=== PATIENT | male | born 1965 | race Caucasian/White ===

== ENCOUNTER 2018-03-18 22:12 | Inpatient (IN) ==
[2018-03-18] MEDS ORDERED: SODIUM CHLORIDE 0.9% 1,000 ML IV STA (22:22)
[2018-03-18] MEDS ORDERED: OCTREOTIDE 100 MCG/ML SYRINGE IV STA (22:22)
[2018-03-18] MEDS ORDERED: SODIUM CHLORIDE 0.9% 1,000 ML IV PRN (22:23)
[2018-03-18 22:31] LABS: Basophils # 0.1 10*3/uL (0.0-0.2); Basophils % 0.7 % (0.0-0.8); Eosinophils % 0.2 % (0.00-10.9); Hematocrit 21.8 VOL% (42.0-52.0); Hemoglobin 7.1 GM/DL (14.0-18.0); Immature Granulocytes % 0.8 %; Immature Granulocytes Absolute 0.11 #; Lymphocytes # 2.3 10*3/uL (1.4-4.0); Lymphocytes % 16.6 % (21.2-54.2); Mean Corpuscular HGB Conc 32.6 GM/DL (32-36); Mean Corpuscular Hemoglobin 28 PG (27-34); Mean Corpuscular Volume 85.5 FL (87-102); Mean Platelet Volume 10.1 FL (9.6-12.0); Monocytes # 1.4 10*3/uL (0.11-0.8); Monocytes % 9.9 % (1.7-12.7); Neutrophils # 9.8 10*3/uL (1.4-7.4); Neutrophils % 71.8 % (38.7-73.9); Platelet Count 230 T/CUMM (130-400); Red Blood Count 2.55 MC/CUMM (3.8-5.5); Red Cell Distribution Width 17.2 % (9.3-17.3); White Blood Count 13.7 T/CUMM (4-12)
[2018-03-18] MEDS: OCTREOTIDE 500 MCG in SODIUM CHLORIDE 0.9% 100 ML IV SCH (22:51)
[2018-03-18 22:57] LABS: INR 1.4; PT Patient Result 14.1 SECS; Partial Thromboplastin Time 28.8 SECS (0-40)
[2018-03-18 22:59] LABS: Albumin 2.6 G/DL (3.4-5.0); Bilirubin,Total 0.8 MG/DL (0.2-1.0); Calcium 8.2 MG/DL (8.5-10.1); Osmolality,Calculated 264.8 MOS/KG (273-304); Potassium 4.5 MMOL/L (3.5-5.1); Total Protein 7.1 G/DL (6.4-8.3)
[2018-03-19] MEDS ORDERED: ALBUTEROL 2.5 MG/3 ML NEB RESP TX PRN (01:21)
[2018-03-19] MEDS ORDERED: ONDANSETRON 4 MG/2 ML VIAL IV PRN (01:21)
[2018-03-19] MEDS: LORazepam 2 MG/1 ML VIAL IV PRN ×2 (02:20→07:44)
[2018-03-19] MEDS: PANTOPRAZOLE INJ 200 MG in SODIUM CHLORIDE 0.9% 250 ML IV SCH (02:55)
[2018-03-19 05:54] LABS: Hematocrit 23.6 VOL% (42.0-52.0); Hemoglobin 8.2 GM/DL (14.0-18.0)
[2018-03-19 05:56] LABS: Basophils # 0.1 10*3/uL (0.0-0.2); Basophils % 0.7 % (0.0-0.8); Eosinophils % 0.2 % (0.00-10.9); Hematocrit 23.8 VOL% (42.0-52.0); Hemoglobin 8.1 GM/DL (14.0-18.0); Immature Granulocytes % 1.3 %; Immature Granulocytes Absolute 0.14 #; Lymphocytes # 1.5 10*3/uL (1.4-4.0); Lymphocytes % 13.6 % (21.2-54.2); Mean Corpuscular Hemoglobin 28 PG (27-34); Mean Corpuscular Volume 81.8 FL (87-102); Mean Platelet Volume 10.1 FL (9.6-12.0); Monocytes # 1.2 10*3/uL (0.11-0.8); Monocytes % 11.5 % (1.7-12.7); Neutrophils # 7.8 10*3/uL (1.4-7.4); Neutrophils % 72.7 % (38.7-73.9); Platelet Count 158 T/CUMM (130-400); Red Blood Count 2.91 MC/CUMM (3.8-5.5); Red Cell Distribution Width 15.5 % (9.3-17.3); White Blood Count 10.7 T/CUMM (4-12)
[2018-03-19 06:06] LABS: INR 1.3; PT Patient Result 13.7 SECS
[2018-03-19 06:43] LABS: Albumin 2.7 G/DL (3.4-5.0); Calcium 7.8 MG/DL (8.5-10.1); Osmolality,Calculated 267.5 MOS/KG (273-304); Potassium 4.4 MMOL/L (3.5-5.1); Total Protein 6.7 G/DL (6.4-8.3)
[2018-03-19 07:47] LABS: Hematocrit 23.7 VOL% (42.0-52.0); Hemoglobin 8.2 GM/DL (14.0-18.0)
[2018-03-19] MEDS: OCTREOTIDE 500 MCG in SODIUM CHLORIDE 0.9% 100 ML IV SCH ×2 (09:27→18:12)
[2018-03-19 14:00] LABS: Hematocrit 23.3 VOL% (42.0-52.0); Hemoglobin 8.1 GM/DL (14.0-18.0)
[2018-03-19 16:33] LABS: % Iron Saturation 20.7 % (18-50)
[2018-03-19 18:06] LABS: Hepatitis A Ab IgM Quant 0.43 Index; Hepatitis A Ab IgM Result Negative (Negative); Hepatitis B Core IgM Quant 0.15 Index; Hepatitis B Core IgM Result Negative (Negative); Hepatitis B Surface Ag Quant 0.61 Index; Hepatitis B Surface Ag Result Negative (Negative); Hepatitis C Virus Ab Quant 0.13 Index; Hepatitis C Virus Ab Result Negative (Negative)
[2018-03-19 18:25] LABS: Hemoglobin 6.1 GM/DL (14.0-18.0)
[2018-03-19] MEDS ORDERED: SODIUM CHLORIDE 0.9% 250 ML IV ONE (18:45)
[2018-03-19] MEDS ORDERED: SODIUM CHLORIDE 0.9% 1,000 ML IV PRN ×2 (18:49→19:06)
[2018-03-19] MEDS ORDERED: PROPOFOL 200 MG/20 ML VIAL IV ONE (20:18)
[2018-03-19] MEDS ORDERED: ONDANSETRON 4 MG/2 ML VIAL ONE (20:19)
[2018-03-19] MEDS ORDERED: PHENYLEPHRINE 1 MG/10 ML SYRINGE IV ONE (20:19)
[2018-03-19] MEDS ORDERED: ePHEDrine 50 MG/ML AMP ONE (20:19)
[2018-03-19] MEDS ORDERED: ETOMIDATE 40 MG/20 ML VIAL IV ONE (20:19)
[2018-03-20] MEDS: METOCLOPRAMIDE 10 MG/2 ML VIAL IV SCH ×4 (00:03→18:53)
[2018-03-20 00:57] LABS: Hematocrit 22.4 VOL% (42.0-52.0); Hemoglobin 7.8 GM/DL (14.0-18.0)
[2018-03-20] MEDS: PANTOPRAZOLE INJ 200 MG in SODIUM CHLORIDE 0.9% 250 ML IV SCH (01:35)
[2018-03-20] MEDS: LORazepam 2 MG/1 ML VIAL IV PRN ×5 (02:15→21:33)
[2018-03-20] MEDS: OCTREOTIDE 500 MCG in SODIUM CHLORIDE 0.9% 100 ML IV SCH ×2 (05:54→16:24)
[2018-03-20 06:12] LABS: Basophils # 0.1 10*3/uL (0.0-0.2); Eosinophils # 0.2 10*3/uL (0.0-0.87); Eosinophils % 2.1 % (0.00-10.9); Hematocrit 25.3 VOL% (42.0-52.0); Hemoglobin 8.5 GM/DL (14.0-18.0); Immature Granulocytes % 0.2 %; Immature Granulocytes Absolute 0.02 #; Lymphocytes # 1.6 10*3/uL (1.4-4.0); Lymphocytes % 19.1 % (21.2-54.2); Mean Corpuscular HGB Conc 33.6 GM/DL (32-36); Mean Corpuscular Hemoglobin 28 PG (27-34); Mean Corpuscular Volume 84.1 FL (87-102); Mean Platelet Volume 10.8 FL (9.6-12.0); Monocytes % 11.8 % (1.7-12.7); Neutrophils # 5.5 10*3/uL (1.4-7.4); Neutrophils % 65.8 % (38.7-73.9); Platelet Count 135 T/CUMM (130-400); Red Blood Count 3.01 MC/CUMM (3.8-5.5); Red Cell Distribution Width 14.7 % (9.3-17.3); White Blood Count 8.4 T/CUMM (4-12)
[2018-03-20 06:21] LABS: INR 1.3; PT Patient Result 13.7 SECS
[2018-03-20 06:23] LABS: INR 1.3; PT Patient Result 13.7 SECS
[2018-03-20 06:42] LABS: Albumin 2.4 G/DL (3.4-5.0); Bilirubin,Total 1.5 MG/DL (0.2-1.0); Calcium 7.7 MG/DL (8.5-10.1); Osmolality,Calculated 277.5 MOS/KG (273-304); Potassium 3.9 MMOL/L (3.5-5.1); Total Protein 6.1 G/DL (6.4-8.3)
[2018-03-20] MEDS ORDERED: PANTOPRAZOLE 40 MG TABLET PO SCH (09:00)
[2018-03-20] MEDS ORDERED: MIDAZOLAM 2 MG/2 ML VIAL ONE (10:15)
[2018-03-20] MEDS ORDERED: PROPOFOL 200 MG/20 ML VIAL IV ONE (10:16)
[2018-03-20] MEDS ORDERED: KETAMINE 500 MG/10 ML VIAL ONE (10:16)
[2018-03-20] MEDS ORDERED: GLYCOPYRROLATE 0.4 MG/2 ML VIAL ONE (10:16)
[2018-03-20] MEDS: NADOLOL 40 MG TABLET PO SCH (11:48)
[2018-03-20 13:19] LABS: Hematocrit 25.8 VOL% (42.0-52.0); Hemoglobin 8.9 GM/DL (14.0-18.0)
[2018-03-20] MEDS: HALOPERIDOL 5 MG/ML AMP IV PRN ×2 (14:42→20:09)
[2018-03-20] MEDS ORDERED: ZINC OXIDE PASTE 113 GM TUBE TOP PRN (19:10)
[2018-03-20 21:07] LABS: Apearance,Urine CLEAR (Clear); Bilirubin,Urine Negative (Negative); Blood, Urine Negative (Negative); Glucose,Urine (UA) Negative (Negative); Ketones,Urine 5 mg/dL (Negative); Mucus,Urine Occasional /LPF (Occasional); Nitrite,Urine Negative (Negative); Protein,Urine Negative; RBC,Urine <1 /HPF (0-4); Squamous Epithelial Cell,Urine Occasional /HPF (0-10); Urine Color Yellow (Yellow); Urine Specific Gravity 1.011 (1.001-1.035); Urine Urobilinogen < 2.0 EU/DL (0.2-1.0); WBC,Urine 1 /HPF (0-6)
[2018-03-20 21:17] LABS: Hemoglobin 8.6 GM/DL (14.0-18.0)
[2018-03-21] MEDS: OCTREOTIDE 500 MCG in SODIUM CHLORIDE 0.9% 100 ML IV SCH ×2 (02:38→12:11)
[2018-03-21] MEDS: LORazepam 2 MG/1 ML VIAL IV PRN (03:11)
[2018-03-21] MEDS: HALOPERIDOL 5 MG/ML AMP IV PRN (03:51)
[2018-03-21 04:58] LABS: Basophils # 0.1 10*3/uL (0.0-0.2); Basophils % 0.8 % (0.0-0.8); Eosinophils # 0.4 10*3/uL (0.0-0.87); Eosinophils % 3.6 % (0.00-10.9); Hematocrit 27.7 VOL% (42.0-52.0); Hemoglobin 8.9 GM/DL (14.0-18.0); Immature Granulocytes % 0.6 %; Immature Granulocytes Absolute 0.06 #; Lymphocytes # 1.2 10*3/uL (1.4-4.0); Lymphocytes % 11.2 % (21.2-54.2); Mean Corpuscular HGB Conc 32.1 GM/DL (32-36); Mean Corpuscular Hemoglobin 28 PG (27-34); Mean Corpuscular Volume 88.2 FL (87-102); Mean Platelet Volume 10.8 FL (9.6-12.0); Monocytes # 1.1 10*3/uL (0.11-0.8); Monocytes % 10.3 % (1.7-12.7); Neutrophils # 7.9 10*3/uL (1.4-7.4); Neutrophils % 73.5 % (38.7-73.9); Platelet Count 147 T/CUMM (130-400); Red Blood Count 3.14 MC/CUMM (3.8-5.5); Red Cell Distribution Width 15.9 % (9.3-17.3); White Blood Count 10.8 T/CUMM (4-12)
[2018-03-21 05:10] LABS: INR 1.2; PT Patient Result 12.9 SECS
[2018-03-21 05:16] LABS: Albumin 2.6 G/DL (3.4-5.0); Bilirubin,Total 1.6 MG/DL (0.2-1.0); Calcium 7.7 MG/DL (8.5-10.1); Osmolality,Calculated 274.5 MOS/KG (273-304); Potassium 3.3 MMOL/L (3.5-5.1); Total Protein 6.8 G/DL (6.4-8.3)
[2018-03-21 05:53] LABS: Hypochromasia 1+; Platelet Estimate Adequate
[2018-03-21] MEDS ORDERED: HALOPERIDOL 5 MG TABLET PO SCH (09:30)
[2018-03-21] MEDS ORDERED: chlordiazePOXIDE 10 MG CAPSULE PO SCH (09:30)
[2018-03-21] MEDS: PANTOPRAZOLE 40 MG VIAL IV SCH ×2 (09:53→20:09)
[2018-03-21] MEDS: NADOLOL 40 MG TABLET PO SCH (09:54)
[2018-03-21] MEDS: POTASSIUM CHLORIDE 20 MEQ TABLET PO PRN ×3 (09:54→16:38)
[2018-03-21] MEDS ORDERED: FUROSEMIDE 40 MG/4 ML VIAL IV ONE (12:21)
[2018-03-21 12:32] LABS: Hematocrit 28.3 VOL% (42.0-52.0); Hemoglobin 9.4 GM/DL (14.0-18.0)
[2018-03-21] MEDS ORDERED: HALOPERIDOL 5 MG TABLET PO PRN (15:30)
[2018-03-21] MEDS: chlordiazePOXIDE 10 MG CAPSULE PO SCH (17:43)
[2018-03-22 00:34] LABS: Hematocrit 24.6 VOL% (42.0-52.0); Hemoglobin 8.3 GM/DL (14.0-18.0)
[2018-03-22 00:46] LABS: Albumin 2.4 G/DL (3.4-5.0); Bilirubin,Total 1.8 MG/DL (0.2-1.0); Calcium 7.1 MG/DL (8.5-10.1); Osmolality,Calculated 267.1 MOS/KG (273-304); Potassium 3.3 MMOL/L (3.5-5.1); Total Protein 6.4 G/DL (6.4-8.3)
[2018-03-22] MEDS: chlordiazePOXIDE 10 MG CAPSULE PO SCH ×4 (01:47→17:28)
[2018-03-22 06:19] LABS: Basophils # 0.1 10*3/uL (0.0-0.2); Basophils % 0.9 % (0.0-0.8); Eosinophils # 0.4 10*3/uL (0.0-0.87); Eosinophils % 4.2 % (0.00-10.9); Hematocrit 28.7 VOL% (42.0-52.0); Hemoglobin 9.3 GM/DL (14.0-18.0); Immature Granulocytes % 0.3 %; Immature Granulocytes Absolute 0.03 #; Lymphocytes # 1.3 10*3/uL (1.4-4.0); Lymphocytes % 13.5 % (21.2-54.2); Mean Corpuscular HGB Conc 32.4 GM/DL (32-36); Mean Corpuscular Hemoglobin 28 PG (27-34); Mean Corpuscular Volume 87.8 FL (87-102); Mean Platelet Volume 10.6 FL (9.6-12.0); Monocytes # 1.5 10*3/uL (0.11-0.8); Monocytes % 15.7 % (1.7-12.7); Neutrophils # 6.1 10*3/uL (1.4-7.4); Neutrophils % 65.4 % (38.7-73.9); Platelet Count 159 T/CUMM (130-400); Red Blood Count 3.27 MC/CUMM (3.8-5.5); Red Cell Distribution Width 15.8 % (9.3-17.3); White Blood Count 9.3 T/CUMM (4-12)
[2018-03-22 06:50] LABS: Band Neutrophils 2 % (0-10); Eosinophils 4 % (0-10); Hypochromasia 1+; Lymphocytes 8 % (20-55); Platelet Estimate Adequate; Segmented Neutrophils 72 % (50-85); Total Cells Counted 100
[2018-03-22] MEDS: POTASSIUM CHLORIDE 20 MEQ TABLET PO PRN ×3 (08:41→17:29)
[2018-03-22] MEDS: PANTOPRAZOLE 40 MG VIAL IV SCH ×2 (08:42→20:10)
[2018-03-22] MEDS: NADOLOL 40 MG TABLET PO SCH (09:02)
[2018-03-23] MEDS: chlordiazePOXIDE 10 MG CAPSULE PO SCH ×2 (03:40→09:58)
[2018-03-23 05:15] LABS: Basophils # 0.1 10*3/uL (0.0-0.2); Eosinophils # 0.3 10*3/uL (0.0-0.87); Eosinophils % 4.3 % (0.00-10.9); Hematocrit 28.8 VOL% (42.0-52.0); Hemoglobin 9.7 GM/DL (14.0-18.0); Immature Granulocytes % 0.4 %; Immature Granulocytes Absolute 0.03 #; Lymphocytes # 1.3 10*3/uL (1.4-4.0); Lymphocytes % 16.2 % (21.2-54.2); Mean Corpuscular HGB Conc 33.7 GM/DL (32-36); Mean Corpuscular Hemoglobin 30 PG (27-34); Mean Corpuscular Volume 87.8 FL (87-102); Mean Platelet Volume 10.2 FL (9.6-12.0); Monocytes # 1.4 10*3/uL (0.11-0.8); Monocytes % 18.4 % (1.7-12.7); Neutrophils # 4.7 10*3/uL (1.4-7.4); Neutrophils % 59.7 % (38.7-73.9); Platelet Count 177 T/CUMM (130-400); Red Blood Count 3.28 MC/CUMM (3.8-5.5); Red Cell Distribution Width 15.9 % (9.3-17.3); White Blood Count 7.8 T/CUMM (4-12)
[2018-03-23 05:54] LABS: Albumin 2.4 G/DL (3.4-5.0); Bilirubin,Direct 0.9 MG/DL (0.0-0.20); Bilirubin,Total 1.9 MG/DL (0.2-1.0); Calcium 8.1 MG/DL (8.5-10.1); Potassium 3.6 MMOL/L (3.5-5.1); Total Protein 6.8 G/DL (6.4-8.3)
[2018-03-23 05:56] LABS: Albumin 2.5 G/DL (3.4-5.0); Bilirubin,Total 1.8 MG/DL (0.2-1.0); Calcium 7.9 MG/DL (8.5-10.1); Osmolality,Calculated 270.8 MOS/KG (273-304); Potassium 3.6 MMOL/L (3.5-5.1); Total Protein 6.7 G/DL (6.4-8.3)
[2018-03-23 06:13] LABS: Eosinophils 6 % (0-10); Lymphocytes 20 % (20-55); Segmented Neutrophils 58 % (50-85); Total Cells Counted 100
[2018-03-23 06:14] LABS: Atypical Lymphocytes Few; Hypochromasia 1+; Microcytosis 1+; Polychromasia Slight; Target Cells Slight
[2018-03-23 06:15] LABS: Platelet Estimate Adequate
[2018-03-23] MEDS: NADOLOL 40 MG TABLET PO SCH (08:19)
[2018-03-23] MEDS: PANTOPRAZOLE 40 MG VIAL IV SCH (08:19)
[2018-03-23 12:14] VITALS: BP 115/73
[2018-03-24 15:16] LABS: Smooth Muscle Antibody Negative (Negative)
[2018-03-24 18:15] LABS: Mitochondrial Antibody (M2) <0.1 U
== END 2018-03-23 14:56 | disposition home health service (06) | DRG 433 ==
LOC: N.ED 22:12 → SUATTDRO 03-19 01:08 → N.EDINP 03-19 01:50 → N.ICU 03-19 01:58 → N.5E 03-21 14:58
PROVIDERS: ADMIT Internal Medicine; ATTEND Hospitalist

== ENCOUNTER 2018-07-01 15:57 | Observation (INO) ==
[2018-07-01] MEDS ORDERED: FUROSEMIDE 100 MG/10 ML VIAL IV STA (16:26)
[2018-07-01] MEDS ORDERED: ONDANSETRON 4 MG/2 ML VIAL IV STA (16:26)
[2018-07-01 16:44] LABS: Basophils # 0.1 10*3/uL (0.0-0.2); Basophils % 0.6 % (0.0-0.8); Eosinophils # 0.2 10*3/uL (0.0-0.87); Eosinophils % 1.9 % (0.00-10.9); Hemoglobin 9.2 GM/DL (14.0-18.0); Immature Granulocytes % 0.5 %; Immature Granulocytes Absolute 0.05 #; Lymphocytes # 1.6 10*3/uL (1.4-4.0); Lymphocytes % 17.4 % (21.2-54.2); Mean Corpuscular HGB Conc 32.9 GM/DL (32-36); Mean Corpuscular Hemoglobin 24 PG (27-34); Mean Corpuscular Volume 74.1 FL (87-102); Mean Platelet Volume 8.9 FL (9.6-12.0); Monocytes # 0.9 10*3/uL (0.11-0.8); Monocytes % 9.9 % (1.7-12.7); Neutrophils # 6.6 10*3/uL (1.4-7.4); Neutrophils % 69.7 % (38.7-73.9); Platelet Count 285 T/CUMM (130-400); Red Blood Count 3.78 MC/CUMM (3.8-5.5); Red Cell Distribution Width 17.9 % (9.3-17.3); White Blood Count 9.4 T/CUMM (4-12)
[2018-07-01 16:55] LABS: INR 1.1; PT Patient Result 11.8 SECS; Partial Thromboplastin Time 31.7 SECS (0-40)
[2018-07-01 16:59] LABS: Albumin 2.6 G/DL (3.4-5.0); Bilirubin,Total 0.6 MG/DL (0.2-1.0); Calcium 8.3 MG/DL (8.5-10.1); Osmolality,Calculated 246.5 MOS/KG (273-304); Total Protein 7.4 G/DL (6.4-8.3)
[2018-07-01 18:51] LABS: Apearance,Urine CLEAR (Clear); Bilirubin,Urine Negative (Negative); Blood, Urine Small mg/dL (Negative); Glucose,Urine (UA) Negative (Negative); Ketones,Urine Negative (Negative); Mucus,Urine Occasional /LPF (Occasional); Nitrite,Urine Negative (Negative); Protein,Urine Negative; RBC,Urine 7 /HPF (0-4); Urine Color Yellow (Yellow); Urine Specific Gravity 1.005 (1.001-1.035); Urine Urobilinogen < 2.0 EU/DL (0.2-1.0); WBC,Urine 1 /HPF (0-6)
[2018-07-01 18:57] LABS: Barbiturates Screen,Urine Negative (Negative); Benzodiazepines Screen,Urine Positive (Negative); Cannabinoid Screen,Urine Negative (Negative); Opiate Screen,Urine Negative (Negative); Phencyclidine Screen,Urine Negative (Negative)
[2018-07-01] MEDS ORDERED: LACTULOSE 20 GM/30 ML UDCUP PO PRN (21:27)
[2018-07-01] MEDS ORDERED: ONDANSETRON 4 MG/2 ML VIAL IV PRN (21:27)
[2018-07-01] MEDS ORDERED: guaiFENesin/DM ER 600-30 MG TABLET PO PRN (21:27)
[2018-07-01] MEDS ORDERED: DOCUSATE SODIUM 100 MG CAPSULE PO PRN (21:27)
[2018-07-01] MEDS ORDERED: diphenhydrAMINE CAP 25 MG CAPSULE PO PRN (21:27)
[2018-07-01] MEDS ORDERED: GLUCOSE GEL 15 GM TUBE PO ONE (21:27)
[2018-07-01] MEDS ORDERED: ALBUMIN 25% 12.5 GM in PREMIX 1 EACH IV ONE (21:27)
[2018-07-01] MEDS: LORazepam 2 MG/1 ML VIAL IV PRN (22:17)
[2018-07-01 22:35] LABS: Hepatitis A Ab IgM Result Negative (Negative); Hepatitis B Core IgM Quant 0.11 Index; Hepatitis B Core IgM Result Negative (Negative); Hepatitis B Surface Ag Quant < 0.10 Index; Hepatitis B Surface Ag Result Negative (Negative); Hepatitis C Virus Ab Quant 0.08 Index; Hepatitis C Virus Ab Result Negative (Negative)
[2018-07-02 04:54] LABS: Basophils # 0.1 10*3/uL (0.0-0.2); Basophils % 0.7 % (0.0-0.8); Eosinophils # 0.2 10*3/uL (0.0-0.87); Eosinophils % 2.6 % (0.00-10.9); Hematocrit 26.5 VOL% (42.0-52.0); Hemoglobin 8.5 GM/DL (14.0-18.0); Immature Granulocytes % 0.2 %; Immature Granulocytes Absolute 0.02 #; Lymphocytes # 1.4 10*3/uL (1.4-4.0); Lymphocytes % 17.3 % (21.2-54.2); Mean Corpuscular HGB Conc 32.1 GM/DL (32-36); Mean Corpuscular Hemoglobin 24 PG (27-34); Mean Corpuscular Volume 73.8 FL (87-102); Mean Platelet Volume 9.3 FL (9.6-12.0); Monocytes % 12.1 % (1.7-12.7); Neutrophils # 5.6 10*3/uL (1.4-7.4); Neutrophils % 67.1 % (38.7-73.9); Platelet Count 315 T/CUMM (130-400); Red Blood Count 3.59 MC/CUMM (3.8-5.5); Red Cell Distribution Width 17.6 % (9.3-17.3); White Blood Count 8.3 T/CUMM (4-12)
[2018-07-02 05:18] LABS: Albumin 2.5 G/DL (3.4-5.0); Bilirubin,Total 1.4 MG/DL (0.2-1.0); Calcium 8.2 MG/DL (8.5-10.1); Osmolality,Calculated 249.2 MOS/KG (273-304); Potassium 4.1 MMOL/L (3.5-5.1); Risk Ratio 3.55; Total Protein 6.8 G/DL (6.4-8.3); VLDL CHOLESTEROL 14.2 MG/DL
[2018-07-02] MEDS: NICOTINE 21 MG/24 HR PATCH TRANSDERM PRN (07:38)
[2018-07-02] MEDS: FUROSEMIDE 20 MG/2 ML VIAL IV SCH ×2 (07:38→18:45)
[2018-07-02] MEDS: LORazepam 2 MG/1 ML VIAL IV PRN ×2 (07:40→21:26)
[2018-07-02] MEDS: THIAMINE 100 MG TABLET PO SCH (08:45)
[2018-07-02] MEDS: FOLIC ACID 1 MG TABLET PO SCH (08:45)
[2018-07-02] MEDS: PANTOPRAZOLE 40 MG TABLET PO SCH (08:45)
[2018-07-02] MEDS: MULTIVITAMIN (OCUVITE) TABLET PO SCH (08:45)
[2018-07-02] MEDS: MORPHINE 4 MG/1 ML VIAL IV PRN (21:00)
[2018-07-03] MEDS: MORPHINE 4 MG/1 ML VIAL IV PRN ×3 (01:30→10:04)
[2018-07-03] MEDS: LORazepam 2 MG/1 ML VIAL IV PRN ×3 (04:12→23:33)
[2018-07-03 04:17] LABS: Basophils % 0.5 % (0.0-0.8); Eosinophils # 0.2 10*3/uL (0.0-0.87); Hematocrit 25.6 VOL% (42.0-52.0); Hemoglobin 8.4 GM/DL (14.0-18.0); Immature Granulocytes % 0.4 %; Immature Granulocytes Absolute 0.03 #; Lymphocytes # 1.4 10*3/uL (1.4-4.0); Lymphocytes % 18.7 % (21.2-54.2); Mean Corpuscular HGB Conc 32.8 GM/DL (32-36); Mean Corpuscular Hemoglobin 24 PG (27-34); Mean Corpuscular Volume 74.2 FL (87-102); Mean Platelet Volume 9.1 FL (9.6-12.0); Monocytes # 1.1 10*3/uL (0.11-0.8); Monocytes % 14.8 % (1.7-12.7); Neutrophils # 4.7 10*3/uL (1.4-7.4); Neutrophils % 63.6 % (38.7-73.9); Platelet Count 280 T/CUMM (130-400); Red Blood Count 3.45 MC/CUMM (3.8-5.5); White Blood Count 7.4 T/CUMM (4-12)
[2018-07-03 04:35] LABS: Calcium 7.8 MG/DL (8.5-10.1); Osmolality,Calculated 259.7 MOS/KG (273-304); Potassium 3.8 MMOL/L (3.5-5.1)
[2018-07-03 04:40] LABS: % Iron Saturation 4.6 % (18-50)
[2018-07-03] MEDS: THIAMINE 100 MG TABLET PO SCH (08:52)
[2018-07-03] MEDS: SPIRONOLACTONE 50 MG TABLET PO SCH (08:52)
[2018-07-03] MEDS: FOLIC ACID 1 MG TABLET PO SCH (08:52)
[2018-07-03] MEDS: BISACODYL 5 MG TABLET PO SCH ×2 (08:52→16:26)
[2018-07-03] MEDS: PANTOPRAZOLE 40 MG TABLET PO SCH (08:52)
[2018-07-03] MEDS: MULTIVITAMIN (OCUVITE) TABLET PO SCH (08:52)
[2018-07-03] MEDS: FUROSEMIDE 20 MG/2 ML VIAL IV SCH ×2 (08:53→16:28)
[2018-07-03] MEDS: NICOTINE 21 MG/24 HR PATCH TRANSDERM PRN (09:05)
[2018-07-03] MEDS ORDERED: ALBUMIN 25% 12.5 GM in PREMIX 1 EACH IV ONE (10:07)
[2018-07-03] MEDS ORDERED: TISSUE ADHESIVE 1 EACH APPLICATOR TOP ONE (10:21)
[2018-07-03 11:22] LABS: Total Protein,Peritoneal Fluid 2.7 G/DL
[2018-07-03 11:23] LABS: Neutrophils,Peritoneal Fluid 17 %; RBC,Peritoneal Fluid < 1 T/CUMM
[2018-07-03] MEDS ORDERED: POLYETHYLENE GLYCOL 3350/ELECTROLYTES 4,000 ML BOTTLE PO ONE (18:00)
[2018-07-03] MEDS ORDERED: MAGNESIUM CITRATE 300 ML BOTTLE PO ONE (21:00)
[2018-07-04] MEDS: BISACODYL 5 MG TABLET PO SCH (00:58)
[2018-07-04] MEDS: LORazepam 2 MG/1 ML VIAL IV PRN ×3 (03:21→10:48)
[2018-07-04 05:34] LABS: Calcium 7.9 MG/DL (8.5-10.1); Osmolality,Calculated 265.2 MOS/KG (273-304); Potassium 3.5 MMOL/L (3.5-5.1)
[2018-07-04] MEDS ORDERED: PROPOFOL 200 MG/20 ML VIAL IV ONE (10:00)
[2018-07-04] MEDS ORDERED: LIDOCAINE 100 MG/5 ML SYRINGE ONE (10:00)
[2018-07-04] MEDS: NICOTINE 21 MG/24 HR PATCH TRANSDERM PRN (10:43)
[2018-07-04 14:31] VITALS: BP 110/78
[2018-07-04] MEDS ORDERED: PROPRANOLOL 10 MG TABLET PO SCH (15:00)
[2018-07-04] MEDS: SPIRONOLACTONE 50 MG TABLET PO SCH (16:30)
[2018-07-04] MEDS: FOLIC ACID 1 MG TABLET PO SCH (16:30)
[2018-07-04] MEDS: MULTIVITAMIN (OCUVITE) TABLET PO SCH (16:30)
[2018-07-04] MEDS: PANTOPRAZOLE 40 MG TABLET PO SCH (16:30)
[2018-07-04] MEDS: FUROSEMIDE 20 MG/2 ML VIAL IV SCH (16:30)
[2018-07-04] MEDS: THIAMINE 100 MG TABLET PO SCH (16:31)
== END 2018-07-04 15:58 | disposition home or self-care (01) ==
LOC: EDUNIT# → EDBD → N.ED 15:57 → SUATTDRO 20:08 → N.EDINP 20:08 → INTOOBSV 20:08 → N.ICU 21:12 → N.5E 07-04 03:13
PROVIDERS: ADMIT Emergency Medicine; ATTEND Internal Medicine

== ENCOUNTER 2018-07-22 16:13 | Inpatient (IN) ==
[2018-07-22] MEDS ORDERED: ONDANSETRON 4 MG/2 ML VIAL IV STA (16:46)
[2018-07-22 17:07] LABS: Basophils # 0.1 10*3/uL (0.0-0.2); Basophils % 1.1 % (0.0-0.8); Eosinophils # 0.2 10*3/uL (0.0-0.87); Eosinophils % 2.8 % (0.00-10.9); Hematocrit 25.8 VOL% (42.0-52.0); Hemoglobin 8.8 GM/DL (14.0-18.0); Immature Granulocytes % 0.3 %; Immature Granulocytes Absolute 0.02 #; Lymphocytes # 1.6 10*3/uL (1.4-4.0); Lymphocytes % 26.5 % (21.2-54.2); Mean Corpuscular HGB Conc 34.1 GM/DL (32-36); Mean Corpuscular Hemoglobin 24 PG (27-34); Mean Corpuscular Volume 69.7 FL (87-102); Mean Platelet Volume 8.6 FL (9.6-12.0); Monocytes # 0.6 10*3/uL (0.11-0.8); Monocytes % 10.3 % (1.7-12.7); Neutrophils # 3.6 10*3/uL (1.4-7.4); Platelet Count 251 T/CUMM (130-400); Red Cell Distribution Width 16.9 % (9.3-17.3); White Blood Count 6.1 T/CUMM (4-12)
[2018-07-22 17:17] LABS: INR 1.2; PT Patient Result 12.6 SECS; Partial Thromboplastin Time 31.5 SECS (0-40)
[2018-07-22 17:24] LABS: Albumin 2.6 G/DL (3.4-5.0); Bilirubin,Total 0.8 MG/DL (0.2-1.0); Calcium 7.7 MG/DL (8.5-10.1); Osmolality,Calculated 228.8 MOS/KG (273-304); Total Protein 7.3 G/DL (6.4-8.3)
[2018-07-22 17:27] LABS: Potassium 2.5 MMOL/L (3.5-5.1)
[2018-07-22] MEDS ORDERED: ONDANSETRON 4 MG/2 ML VIAL IV PRN (18:27)
[2018-07-22] MEDS ORDERED: MAGNESIUM SULF RIDER 1 GM in PREMIX 1 EACH IV ONE (20:00)
[2018-07-22] MEDS: POTASSIUM CHLORIDE 20 MEQ/15 ML UDCUP PO SCH ×2 (21:01→23:43)
[2018-07-22] MEDS: LORazepam 1 MG TABLET PO PRN (21:01)
[2018-07-23 01:53] LABS: Apearance,Urine CLEAR (Clear); Bacteria,Urine Occasional /HPF (Few); Bilirubin,Urine Negative (Negative); Blood, Urine Negative (Negative); Glucose,Urine (UA) Negative (Negative); Hyaline Casts,Urine 4 /LPF (0-3); Ketones,Urine Negative (Negative); Mucus,Urine Occasional /LPF (Occasional); Nitrite,Urine Negative (Negative); Protein,Urine Negative; RBC,Urine <1 /HPF (0-4); Squamous Epithelial Cell,Urine Occasional /HPF (0-10); Urine Color Yellow (Yellow); Urine Specific Gravity 1.008 (1.001-1.035); Urine Urobilinogen < 2.0 EU/DL (0.2-1.0); WBC,Urine <1 /HPF (0-6)
[2018-07-23] MEDS: POTASSIUM CHLORIDE 20 MEQ/15 ML UDCUP PO SCH (03:53)
[2018-07-23 06:53] LABS: Basophils # 0.1 10*3/uL (0.0-0.2); Basophils % 1.1 % (0.0-0.8); Eosinophils # 0.2 10*3/uL (0.0-0.87); Eosinophils % 3.8 % (0.00-10.9); Hematocrit 27.1 VOL% (42.0-52.0); Hemoglobin 8.9 GM/DL (14.0-18.0); Immature Granulocytes % 0.4 %; Immature Granulocytes Absolute 0.02 #; Lymphocytes # 1.2 10*3/uL (1.4-4.0); Lymphocytes % 21.8 % (21.2-54.2); Mean Corpuscular HGB Conc 32.8 GM/DL (32-36); Mean Corpuscular Hemoglobin 23 PG (27-34); Mean Corpuscular Volume 70.9 FL (87-102); Mean Platelet Volume 8.5 FL (9.6-12.0); Monocytes # 0.7 10*3/uL (0.11-0.8); Monocytes % 13.2 % (1.7-12.7); Neutrophils # 3.3 10*3/uL (1.4-7.4); Neutrophils % 59.7 % (38.7-73.9); Platelet Count 226 T/CUMM (130-400); Red Blood Count 3.82 MC/CUMM (3.8-5.5); White Blood Count 5.5 T/CUMM (4-12)
[2018-07-23] MEDS ORDERED: POTASSIUM CHLORIDE 20 MEQ TABLET PO PRN (07:00)
[2018-07-23 07:21] LABS: Albumin 2.2 G/DL (3.4-5.0); Bilirubin,Total 0.6 MG/DL (0.2-1.0); Calcium 8.2 MG/DL (8.5-10.1); Osmolality,Calculated 236.2 MOS/KG (273-304); Potassium 4.1 MMOL/L (3.5-5.1); Total Protein 6.7 G/DL (6.4-8.3)
[2018-07-23] MEDS ORDERED: FUROSEMIDE 40 MG TABLET PO SCH (08:00)
[2018-07-23] MEDS: MULTIVITAMIN (CENTRUM) TABLET PO SCH (08:23)
[2018-07-23] MEDS: PANTOPRAZOLE 40 MG TABLET PO SCH (08:23)
[2018-07-23] MEDS: LORazepam 1 MG TABLET PO PRN ×3 (08:24→23:59)
[2018-07-23] MEDS: FOLIC ACID 1 MG TABLET PO SCH (08:24)
[2018-07-23] MEDS: THIAMINE 100 MG TABLET PO SCH (08:24)
[2018-07-23] MEDS ORDERED: ALBUMIN 25% 12.5 GM in PREMIX 1 EACH IV ONE ×2 (11:38→15:00)
[2018-07-23 12:38] LABS: RBC,Peritoneal Fluid 9 T/CUMM
[2018-07-23] MEDS: SPIRONOLACTONE 50 MG TABLET PO SCH (12:50)
[2018-07-23] MEDS: chlordiazePOXIDE 25 MG CAPSULE PO SCH ×2 (15:42→20:28)
[2018-07-23] MEDS ORDERED: ACETAMINOPHEN 325 MG TABLET PO PRN (18:12)
[2018-07-24 05:31] LABS: Osmolality,Calculated 254.1 MOS/KG (273-304); Potassium 3.3 MMOL/L (3.5-5.1)
[2018-07-24] MEDS: FOLIC ACID 1 MG TABLET PO SCH (08:26)
[2018-07-24] MEDS: THIAMINE 100 MG TABLET PO SCH (08:26)
[2018-07-24] MEDS: MULTIVITAMIN (CENTRUM) TABLET PO SCH (08:26)
[2018-07-24] MEDS: chlordiazePOXIDE 25 MG CAPSULE PO SCH (08:26)
[2018-07-24] MEDS: PANTOPRAZOLE 40 MG TABLET PO SCH (08:27)
[2018-07-24] MEDS: SPIRONOLACTONE 50 MG TABLET PO SCH (08:27)
[2018-07-24] MEDS ORDERED: FUROSEMIDE 40 MG TABLET PO SCH (09:00)
[2018-07-24 09:30] VITALS: BP 100/66
[2018-07-24] MEDS ORDERED: POTASSIUM CHLORIDE 20 MEQ TABLET PO ONE (09:47)
[2018-07-24] MEDS ORDERED: SPIRONOLACTONE 50 MG TABLET PO SCH (09:48)
== END 2018-07-24 11:13 | disposition home or self-care (01) | DRG 433 ==
LOC: N.ED 16:13 → N.EDINP 18:27 → N.5E 19:05
PROVIDERS: ADMIT Hospitalist; ATTEND Hospitalist